=== PATIENT | male | born 1950 | race Caucasian/White ===

== ENCOUNTER 2018-04-02 09:10 | Day surgery (SDC) | payer OTHER, SELFPAY ==
--- NOTE | 2018-04-02 | PATH_ITS ---
[facility] Accession Number: [id number] . 01 Material submitted: . PART A: DUODENAL NODULE BIOPSY PART B: GE JUNCTION BIOPSY . 02 Diagnosis: A. Duodenum, Nodule, Biopsy: Duodenal mucosa with gastric heterotopia. Negative for intraepithelial lymphocytosis or villous blunting. Negative for dysplasia and malignancy. . B. Gastroesophageal Junction, Biopsy: Squamocolumnar junctional mucosa with reflux-related changes. Negative for intestinal metaplasia. Intraepithelial eosinophils are not increased. Negative for dysplasia and malignancy. V/04/05/2018 . 02 Electronically signed: . Deisy Rossi MD, Pathologist NPI- [id number] . 01 Gross description: . Received two formalin-filled containers, both labeled with the patient's name: . A. In a container labeled duodenal nodules, are four 0.1-0.3 cm portions of tissue, entirely submitted in cassette A. B. In a container labeled GE junction, are multiple less than 0.1 cm to 0.3 cm portions of tissue, entirely submitted in cassette B. ([id number]) /FRR . 02 Pathologist provided ICD-10: R10.9 . 02 CPT . 140571, 999212 Performed at: 01 [facility] [address], [place], [place] [id number] MD Александр Edmonds MD Phone: [phone] Performed at: 02 [facility] [address] [place], [place] [id number] MD William Kong MD Phone: [phone]
[2018-04-02] MEDS: SODIUM CHLORIDE 0.9% 1,000 ML 200 ML IV (09:15)
[2018-04-02 09:30] VITALS: BP 136/67; PULSE 65; RESP 12; TEMP 36.2; O2SAT 99; BMI 27.8
--- NOTE | 2018-04-02 10:45 | PM.HP.1 ---
History of Present Illness Date Patient Seen: 04/02/18 Time Patient Seen: 10:45 Chief complaint: [id number] EGD Narrative: Patient with chronic reflux disease and a dry cough here for evaluation at the request of his primary care doctor. Patient History Medical History Diabetes mellitus type 2 in obese (Chronic) Hypertension, essential, benign (Chronic) Soft tissue infection of lumbar spine (Resolved) Family & Social History Social History: household members spouse Meds Home Medications Medication Instructions Recorded Confirmed Type lisinopril 10 mg PO QAM #90 tab 12/25/16 Rx atorvastatin [Lipitor] 80 mg PO Q EVENING #90 tab 02/24/17 Rx glimepiride 1 mg PO AMCC #90 tab 02/24/17 Rx metformin [Glucophage] 1,000 mg PO BIDCC #180 tab 02/24/17 Rx Allergies Allergy/AdvReac Type Severity Reaction Status Date / Time Penicillins [PENICILLINS] Allergy Mild itching Verified 04/02/18 09:38 Review of Systems Review of Systems All systems reviewed & are unremarkable except as noted in HPI and below Exam Vital Signs (past 8 hours): - 04/02/18 09:30 Temperature 97.2 F L Pulse Rate 65 Respiratory Rate 12 Blood Pressure 136/67 H Pulse Oximetry 99 Oxygen Delivery Method Room Air Narrative Exam Narrative: No apparent distress. Lungs are clear is rhonchi heart regular rate and rhythm without murmur gallop abdomen is soft protuberant nontender without mass. Alert and oriented x3. Assessment & Plan Plan: Assessment/Plan Narrative: Patient with chronic reflux for an EGD. I have discussed procedure rationale. Risks of bleeding, perforation discussed. He appears to understand wishes to proceed
--- NOTE | 2018-04-02 10:50 | PM.PREOP ---
Pre-operative Note Interval Note Pre-op Check: Yes History & Physical exam performed today by Physician Changes: No ASA Class (for procedural sedation): II
[2018-04-02] MEDS: fentaNYL 250 MCG/5 ML INJ 150 MCG IV (11:09)
[2018-04-02] MEDS: MIDAZOLAM 5 MG/5 ML VIAL 4 MG IV (11:09)
[2018-04-02] MEDS: LIDOCAINE 4% SOLN 50 ML 20 ML TOP (11:10)
[2018-04-02] MEDS: TETRACAINE/BENZOCAINE/BUTAMBEN (CETACAINE) BOTTLE 1 SPRAY TOP (11:10)
--- NOTE | 2018-04-02 11:11 | P.OP.ENDO_ITS ---
Operative Date/Time/Diagnoses Date of procedure: 04/02/18 Time of procedure: 11:06 Pre-op diagnosis: Gastroesophageal reflux disease Post-op diagnosis: same (Possible Vincent's esophagus. Prominent glandular her formations in the duodenal bulb.) Procedure & Clinicians Study performed: EGD with cold biopsy Same procedure as scheduled: Yes Indications: Chronic reflux disease. Dry cough persistent. Surgeon: Sam Martinez Procedure Notes SCOAP/Timeout: Performed Procedure in detail: The patient had topical anesthetic applied to oropharynx. She was placed in left lateral decubitus position and underwent IV sedation directed by the surgeon consisting of fentanyl and Versed. A bite block was inserted and the scope was advanced through it into the esophagus. The esophagus was unremarkable. GE junction was noted at[38 cm from the incisors. No obvious hiatal hernia noted. There was mild inflammation at the GE junction.] . The stomach insufflated well. There were no lesions seen in the body, antrum or at the incisura. The pyloric channel was patent. The duodenum bulb was remarkable for heaped up glandular material. The duodenum was otherwise unremarkable to the 3rd part. The scope was brought back into the duodenal bulb and biopsies were taken. The scope was then brought into the stomach and retroflexed. The proximal stomach[normal in appearance. There was no evidence of a hiatal hernia from below.]. The scope was straightened and brought out through the esophagus again. Biopsies were taken at the GE junction. The scope was removed and the patient tolerated the procedure well. The vocal cords were noted to be normal in appearance. There was no evidence of inflammation above the vocal cords. Scope withdrawal time: Not applicable Sedation minutes: 11 Findings: Vincent's esophagus (Possible) and other findings (Prominent glands in the duodenal bulb which were biopsied. Suspect benign pathology.) Specimen(s): other (GE junction a duodenal bulb biopsies) Complications: none Recommendations: Other recommendation (Will send letter regarding pathology) Follow up: as needed (With Dr. Molina) Disposition: PACU
[2018-04-02 11:16] VITALS: BP 135/85; PULSE 71; RESP 15; TEMP 36.6
[2018-04-02 11:20] VITALS: BP 121/71; PULSE 69; RESP 20
[2018-04-02 11:25] VITALS: BP 128/82; PULSE 72; RESP 12; O2SAT 96
[2018-04-02 11:36] VITALS: BP 132/81; PULSE 73; RESP 16; TEMP 36.6; O2SAT 96
--- NOTE | 2018-04-02 12:00 | SUR.PHASEII ---
pt initially wanted to talk with dr jefferson, office called, in room message left, pt not wanting to wait, d/c instructions answered all questions. pt left when ready and left in stable condition with priority load for nurys.
== END 2018-04-02 12:00 | disposition home or self-care (01) ==
PROVIDERS: Visit Provider Specialist
PROC: 0DJ08ZZ Inspection of Upper Intestinal Tract, Via Natural or Artificial Opening Endoscopic (ICD-10-PCS; CPT 43235; principal; 2018-04-02 08:45)
DX: K21.9 Gastro-esophageal reflux disease without esophagitis (principal); R05 Cough; E11.9 Type 2 diabetes mellitus without complications; E66.9 Obesity, unspecified; I10 Essential (primary) hypertension; Z79.84 Long term (current) use of oral hypoglycemic drugs
CPT/HCPCS: 43239; 99152; J2250; J3010

== ENCOUNTER → 2018-12-28 09:53 | Outpatient (CLI) | payer OTHER, SELFPAY ==
--- NOTE | 2018-12-28 | DI.US.S_ITS ---
PROCEDURE: US SCROTUM INDICATIONS: DISORDER OF MALE GENITAL ORGANS TECHNIQUE: Real-time scanning was performed of the scrotum and testicles, with image documentation. Color and pulse Doppler interrogation was performed of both testicles. COMPARISON: None. FINDINGS: Right: Testicle is normal in size at 4.6 x 2.0 x 3.3 cm, and homogenous in echotexture. Epididymis is normal in overall size and morphology. There is a hydrocele. No varicoceles. Overlying scrotal skin is normal in thickness. Left: Testicle is normal in size at 4.0 x 2.6 x 3.7 cm, and homogeneous in echotexture. Spermatocele or cyst involving the epididymal head measuring 6.2 x 4.4 x 2.9 cm. There is a hydrocele. No varicoceles. Overlying scrotal skin is normal in thickness. Doppler: Color and pulse Doppler demonstrate normal and symmetric arterial flow in both testicles. IMPRESSION: Large left epididymal head cyst/spermatocele. Bilateral hydroceles. Dictated by: Dave Garcia M.D. on 12/28/2018 at 15:04 Approved by: Dave Garcia M.D. on 12/28/2018 at 15:07
== END ==
PROVIDERS: PCP Family Medicine; Visit Provider Family Medicine
DX: N50.9 Disorder of male genital organs, unspecified (principal); N50.3 Cyst of epididymis; N43.3 Hydrocele, unspecified
CPT/HCPCS: 76870

== ENCOUNTER → 2020-12-25 08:20 | Outpatient (CLI) | payer MEDICARE, OTHER, SELFPAY ==
[2020-12-25 19:28] LABS: Alanine Aminotransferase 32 IU/L (<50); Albumin 3.8 g/dL (3.5-5.0); Albumin Globulin Ratio 1.5 (1.0-2.8); Alkaline Phosphatase 70 U/L (38-126); Aspartate Aminotransferase 34 IU/L (17-59); BUN Creatinine Ratio 21.8 (6-22); Bilirubin Total 0.5 mg/dL (0.2-1.3); Blood Urea Nitrogen 24 mg/dL (9-20); Calcium 9.7 mg/dL (8.4-10.2); Carbon Dioxide 25 mmol/L (22-32); Chloride 104 mmol/L (98-107); Cholesterol 203 mg/dL (140-199); Estimated Glomerular Filt Rate > 60.0 mL/min (>60); Globulin 2.6 g/dL (1.7-4.1); Glucose 180 mg/dL (80-110); HDL Cholesterol 42 mg/dL (40-60); HEMOLYSIS < 15 (0-50); LDL Cholesterol Calculated 133 mg/dL (<100); Potassium 4.7 mmol/L (3.4-5.1); Sodium 136 mmol/L (137-145); Total Protein 6.4 g/dL (6.3-8.2); Triglycerides 141 mg/dL (35-150)
[2020-12-26 21:25] LABS: Add Manual Diff / Slide Review NO; Basophils Absolute Auto 100 /uL (0-100); Basophils Percent Auto 1.5 % (0-2); Eosinophils Absolute Auto 200 /uL (0-450); Eosinophils Percent Auto 2.8 % (2-4); Hematocrit 43.1 % (41-53); Hemoglobin 13.8 g/dL (13.5-17.5); Lymphocytes Absolute Auto 2400 /uL (1100-4500); Lymphocytes Percent Auto 40.8 % (25-40); Mean Corpuscular HGB Conc 32.2 % (30-36); Mean Corpuscular Hemoglobin 30.7 PG (26-34); Mean Corpuscular Volume 95.5 fL (80-100); Monocytes Absolute Auto 600 /uL (0-900); Monocytes Percent Auto 9.7 % (3-14); Neutrophils Absolute Auto 2700 /uL (1500-7000); Neutrophils Percent Auto 45.2 % (50-75); Platelet Count 173 X10^3/uL (150-400); Red Blood Cell Count 4.51 X10^6/uL (4.5-5.9); Red Cell Distribution Width 14.4 % (11.6-14.8); White Blood Cell Count 5.9 X10^3/uL (4.5-11.0)
== END ==
PROVIDERS: PCP Family Medicine; Visit Provider Family Medicine
DX: E11.9 Type 2 diabetes mellitus without complications (principal); E78.5 Hyperlipidemia, unspecified; I10 Essential (primary) hypertension
CPT/HCPCS: 80053; 80061; 83036; 85025

== ENCOUNTER → 2021-01-09 12:25 | Outpatient (CLI) | payer MEDICARE, OTHER, SELFPAY ==
[2021-01-09 20:43] LABS: COVID19 - ORCAS (NP or Nasal) Negative (Negative)
== END ==
PROVIDERS: PCP Family Medicine; Visit Provider Family Medicine
DX: Z01.812 Encounter for preprocedural laboratory examination (principal); Z20.822 Contact with and (suspected) exposure to COVID-19
CPT/HCPCS: C9803; U0003

== ENCOUNTER 2021-01-11 09:15 | Day surgery (SDC) | payer MEDICARE, OTHER, SELFPAY ==
--- NOTE | 2021-01-11 | PATH_ITS ---
[facility] Accession Number: [id number] . 01 Material submitted: . PART A: hepatic flexure - HEPATIC FLEXURE POLYPS PART B: rectum - RECTAL POLYP PART C: colon - LESION AT ANAL VERGE . 02 Diagnosis: A. Hepatic Flexure Polyps: Multiple (approximately six) portions of serrated lesion; favor sessile serrated adenoma. . B. Rectal Polyp: Well-differentiated neuroendocrine tumor, grade 1. . C. Lesion at Anal Verge: Squamous papilloma; negative for dysplasia or malignancy. [facility] 01/17/2021 1647 Local . 02 Comment: As part of routine quality control supervisor, Dr. Toney also reviewed this case and agrees with the diagnosis. . Results discussed with Dr. Martinez's nurse, Dionna, on 01/17/2021 at approximately 3:29 p.m. . 02 Electronically signed: . No Sandhu MD, Pathologist NPI- [id number] . 01 Gross description: . Part A: HEPATIC FLEXURE POLYPS: Received in formalin are multiple fragment(s) of antonio, soft tissue measuring 2.2 x 0.6 x 0.2 cm in aggregate submitted entirely in 1 cassette(s) Part B: RECTAL POLYP: Received in formalin are multiple fragment(s) of antonio, soft tissue measuring 0.6 x 0.5 x 0.4 cm in aggregate submitted entirely in 1 cassette(s) Part C: LESION AT ANAL VERGE: Received in formalin are 2 fragment(s) of antonio, soft tissue measuring 0.2 x 0.2 x 0.2 cm to 0.2 x 0.2 x 0.1 cm submitted entirely in 1 cassette(s) /[facility] 01/13/2021 1507 Local . 02 Microscopic: . Immunohistochemical stains were performed to further evaluate the cells of interest. The control stains showed appropriate reactivity. . RESULTS: Block B1: Synaptophysin: Strongly positive. Chromogranin: Variable staining. Ki-67: Less than 2% of tumor nuclei positive. . The lesion is immunopositive for synaptophysin with variable chromogranin immunostaining. The Ki-67 immunostain is positive in less than 2% of the tumor nuclei. These findings support a diagnosis of neuroendocdrine tumor as well as a low-grade (well-differentiated) classification. . . * This test was developed and its performance characteristics determined by [facility]. It has not been cleared or approved by the U.S. Food and Drug Administration. The FDA has determined that such clearance or approval is not necessary. This test is used for clinical purposes. It should not be regarded as investigational or for research. . 02 Pathologist provided ICD-10: Z12.11, Z86.010, R13.10, D3A.026 . 02 CPT . 858730, 043769, 303040, U32571, K08553 Performed at: 01 [facility] [address] [id number] MD Александр Edmonds MD Phone: [phone] Performed at: 02 [facility] [address] [place] [id number] MD Deisy Rossi MD Phone: [phone]
[2021-01-11 10:22] VITALS: BMI 28.1
[2021-01-11 10:30] VITALS: BP 133/71; PULSE 78; RESP 12; TEMP 36.6; O2SAT 98
[2021-01-11] MEDS: LACTATED RINGERS 1,000 ML 200 ML IV (10:42)
--- NOTE | 2021-01-11 10:51 | PM.PREOP ---
Pre-operative Note COVID-19 COVID-19 status: Negative Result date/Date tested (Pos, Neg/Pending): 01/10/21 Interval Note History & Physical reviewed/Exam performed by Physician: Yes Changes to H&P: No ASA Class (for procedural sedation): II
[2021-01-11] MEDS: LIDOCAINE 4% SOLN 50 ML 20 ML TOP (11:48)
[2021-01-11] MEDS: fentaNYL 250 MCG/5 ML INJ IV (12:11)
[2021-01-11] MEDS: MIDAZOLAM 5 MG/5 ML VIAL IV (12:11)
--- NOTE | 2021-01-11 12:33 | P.OP.ENDO_ITS ---
Operative Date/Time/Diagnoses Date of procedure: 01/11/21 Time of procedure: 12:33 Pre-op diagnosis: Dysphagia. Screening for colon cancer. Personal history of polyps. Post-op diagnosis: same (Hiatal hernia. Schatzki ring. Multiple polypoid lesions of the colon. Lesion at anal verge.) Procedure & Clinicians Study performed: EGD. Colonoscopy with hot snare polypectomy, cold snare polypectomy and cold biopsy. Same procedure as scheduled: Yes Indications: Screening for colon cancer. Determine cause of dysphagia. Surgeon: Sam Martinez Procedure Notes SCOAP/Timeout: Performed Procedure in detail: Patient was placed in left lateral decubitus position after gargling with topical anesthetic. He was sedated using fentanyl and Versed in a stepwise fashion. A bite block was inserted and the scope was advanced through into the esophagus. The esophagus was normal until I reach the GE junction. There was defined Schatzki ring but not really any narrowing. It was opened wide enough that the largest balloon I had is unlikely to have dilated it. Just below was a hiatal hernia measuring about 3 cm in length. The stomach insufflated well. No lesions were seen in the stomach. The incisura was clear. Pyloric channel was patent. The duodenum was unremarkable with 4th part. The scope was brought back into the stomach and retroflexed. The hiatal hernia seen from above was also seen from below. The scope was gradually brought out. GE junction was noted to be at about 36 cm from the incisors. No other lesions were seen in the esophagus. The patient was repositioned. The patient was placed in the left lateral decubitus position and underwent IV sedation directed by the surgeon consisting of fentanyl and Versed. Digital exam was remarkable for a palpable lesion in the rectum. It felt hard like it was scar.. The scope was inserted and advanced through the rectum into the sigmoid, descending, transverse, and ascending colon. Patient was noted to have sigmoid diverticulosis. There was a small lesion noted at the hepatic flexure which I decided to remove on the way out.. The cecum was reached identified by the ileocecal valve and the appendiceal opening. The ileocecal valve was succ essfully cannulated. The terminal ileum was normal in appearance. The scope was gradually brought out. Polyps were found at hepatic flexure(which was hot snared), there was a near by polyp which was cold snared. One other lesion at the anal verge was hot snared. This was what I could feel on exam.. The scope ultimately was retroflexed in the rectum. The appearance was remarkable for was probably some prominent scarring on hemorrhoids. I placed a snare on this lesion and attempted to remove it but the patient felt what I was doing and therefore I decided to simply biopsy it to confirm my suspicion. If the biopsy proves to be adenomatous then this will half to be re-examined and completely removed. That may require anesthesia to do that. If it is simply scarring or not neoplastic then its can be observed.. The scope was removed and the patient tolerated the procedure well. The prep was very good. Scope withdrawal time: 7 minutes(19 total) Sedation minutes: 44 Findings: polyp (Multiple) and other findings (Schatzki ring) Specimen(s): other (Colon polyps and anal lesion.) Complications: none Post-procedure Recommendations: Colonscopy in 5 years and Continue medication(s) (Acid suppression medication) Plan for aftercare: If the patient has considerable symptoms from reflux consideration for anti-reflux repair and repair of his diaphragm could be entertained. Simple repair of a diaphragmatic hernias are unfortunately fraught with early failure and it may be best for him to make an effort to chew his food really well before swallowing. Follow up: as needed Disposition: PACU
[2021-01-11 12:38] VITALS: BP 143/82; PULSE 74; RESP 15; TEMP 36.7; O2SAT 99
[2021-01-11 12:42] VITALS: BP 142/74; PULSE 72; RESP 15; O2SAT 100
[2021-01-11 12:47] VITALS: BP 138/74; PULSE 78; RESP 17; O2SAT 99
[2021-01-11 12:54] VITALS: BP 130/78; PULSE 72; RESP 18; TEMP 36.8; O2SAT 99
== END 2021-01-11 13:03 | disposition home or self-care (01) ==
PROVIDERS: PCP Family Medicine; Referring Provider Specialist; Visit Provider Specialist
PROC: 0DJ08ZZ Inspection of Upper Intestinal Tract, Via Natural or Artificial Opening Endoscopic (ICD-10-PCS; CPT 43235; principal; 2021-01-11 10:45)
PROC: 0DJD8ZZ Inspection of Lower Intestinal Tract, Via Natural or Artificial Opening Endoscopic (ICD-10-PCS; CPT 45378; 2021-01-11 10:45)
DX: Z12.11 Encounter for screening for malignant neoplasm of colon (principal); Z86.010 Personal history of colon polyps; R13.10 Dysphagia, unspecified; K22.2 Esophageal obstruction; K44.9 Diaphragmatic hernia without obstruction or gangrene; E66.9 Obesity, unspecified; I10 Essential (primary) hypertension; E11.9 Type 2 diabetes mellitus without complications; Z79.84 Long term (current) use of oral hypoglycemic drugs; Z68.28 Body mass index [BMI] 28.0-28.9, adult; D3A.026 Benign carcinoid tumor of the rectum
CPT/HCPCS: 45385; 45380; 43235; 99152; 99153; J2250; J3010

== ENCOUNTER → 2021-02-25 11:24 | Outpatient (CLI) | payer MEDICARE, OTHER, SELFPAY ==
[2021-02-25 21:28] LABS: COVID19 - ORCAS (NP or Nasal) Negative (Negative)
== END ==
PROVIDERS: PCP Family Medicine; Visit Provider Physician Assistant
DX: Z20.822 Contact with and (suspected) exposure to COVID-19 (principal)
CPT/HCPCS: C9803; U0003

== ENCOUNTER 2021-02-28 09:36 | Day surgery (SDC) | payer MEDICARE, OTHER, SELFPAY ==
--- NOTE | 2021-02-28 | PATH_ITS ---
[facility] Accession Number: [id number] . 01 Material submitted: . body - POSSIBLE POLYP SITE . 02 Diagnosis: Possible Polyp Site, Biopsy: Colonic mucosa with no diagnostic abnormality. Negative for active, chronic, and microscopic colitis. Negative for dysplasia and malignancy. . [facility] 03/12/2021 1307 Local . 02 Electronically signed: . Deisy Rossi MD, Pathologist NPI- [id number] . 01 Gross description: . POSSIBLE POLYP SITE: Received in formalin are 3 fragment(s) of antonio, soft tissue measuring 0.6 x 0.3 x 0.1 cm to 0.4 x 0.2 x 0.2 cm submitted entirely in 1 cassette(s) /[facility] 03/01/2021 0436 Local . 02 Pathologist provided ICD-10: D3A.8 . 02 CPT . 381572 Performed at: 01 [facility] [address] [facility], [place], [place] [id number] MD Александр Edmonds MD Phone: [phone] Performed at: 02 [facility] [address] [place], [place] [id number] MD Deisy Rossi MD Phone: [phone]
[2021-02-28 10:10] VITALS: BP 155/84; PULSE 67; RESP 16; TEMP 36.3; O2SAT 99; BMI 28.1
[2021-02-28] MEDS: LACTATED RINGERS 1,000 ML 42 ML IV (10:28)
--- NOTE | 2021-02-28 12:01 | PM.HP.1 ---
History of Present Illness History of Present Illness Chief complaint: FLEX SIG Narrative: Patient is a gentleman who had a neuroendocrine tumor removed in his rectum. This was a tiny lesion and appeared to be completely removed. He is brought back to make sure there no regrowth or residual tumor. Patient History Medical History Alcoholism in recovery Diabetes mellitus type 2 in obese H/O renal calculi Hiatal hernia Hypertension, essential, benign Peripheral neuropathy (~2006) Soft tissue infection of lumbar spine Surgical History Anesthesia Hx of spinal surgery Family & Social History Family History Mother Cancer Sister Cancer Grandmother Cancer Social History: household members spouse Tobacco & Substance use: Smoking Status Never smoker alcohol intake never Substance Use Type does not use Meds Home Medications and Allergies Home Medications Medication Instructions Recorded Confirmed Type famotidine-Ca carb-mag hydrox 10 1 tab PO DAILY PRN 12/13/20 02/28/21 History mg-800 mg-165 mg chewable tablet (Pepcid Complete) metformin 500 mg tablet 500 mg PO BID #60 tab 12/13/20 02/28/21 Rx atorvastatin 80 mg tablet (Lipitor) 80 mg PO Q EVENING #90 tab 01/01/21 02/28/21 Rx glimepiride 1 mg tablet 1 mg PO AMCC #90 tab 01/01/21 02/28/21 Rx lisinopril 10 mg tablet 10 mg PO QAM #90 tab 01/01/21 02/28/21 Rx Allergies Allergy/AdvReac Type Severity Reaction Status Date / Time Penicillins [PENICILLINS] Allergy Mild itching Verified 12/25/20 08:08 Review of Systems Review of Systems Narrative: No cardiopulmonary symptoms. No black or bloody bowel movements. Exam Vital Signs (past 8 hours): - 02/28/21 10:10 Temperature 97.3 F L Pulse Rate 67 Respiratory Rate 16 Blood Pressure 155/84 H Pulse Oximetry 99 Oxygen Delivery Method Room Air Oxygen Flow Rate 0 Narrative Exam Narrative: Pleasant cooperative patient no apparent distress. Lungs are clear to auscultation. No rales or rhonchi. Heart regular rate and rhythm no murmur gallop. Abdomen is soft nontender without mass. No obvious hernias. Patient is alert and oriented x3. Assessment & Plan Assessment and plan (1) Benign neuroendocrine tumor of rectum: Status: Acute Assessment & Plan narrative: Patient for re-examination to make sure there is no residual or regrowth of a neuroendocrine tumor of the rectum. The coding suggest this is a benign lesion but in fact it is of uncertain behavior.
--- NOTE | 2021-02-28 12:04 | PM.PREOP ---
Pre-operative Note COVID-19 COVID-19 status: Negative Result date/Date tested (Pos, Neg/Pending): 02/27/21 Interval Note History & Physical reviewed/Exam performed by Physician: Yes Changes to H&P: No ASA Class (for procedural sedation): III
--- NOTE | 2021-02-28 12:19 | PM.OP.ENDO ---
Operative Date/Time/Diagnoses Date of procedure: 02/28/21 Time of procedure: 12:19 Pre-op diagnosis: History of rectal neuroendocrine tumor. Post-op diagnosis: same Procedure & Clinicians Study performed: Flexible sigmoidoscopy Same procedure as scheduled: Yes Indications: Determine if there is any residual lesion or regrowth. Surgeon: Sam Martinez Procedure Notes SCOAP/Timeout: Performed Procedure in detail: Patient was placed in left lateral decubitus position. Digital exam was unremarkable. The scope was inserted and advanced to level 30 cm. No lesions were seen. The scope was gradually brought out. There was 1 area that might have been the prior biopsy site. I chose to biopsy it just to make sure there was no residual in that region. There was no other abnormality that I could see and there was nothing seen that was concerning. I had biopsied a lesion at his anal verge would prove to proved to be a fibroepithelial polyp and this was again seen. Scope was removed the patient tolerated the procedure well. Scope withdrawal time: Not applicable Sedation minutes: 0 Specimen(s): other (Biopsies of the rectum) Complications: none Impression: No obvious residual disease. Post-procedure Recommendations: Colonscopy in 1 year Follow up: as needed Disposition: PACU
[2021-02-28 12:25] VITALS: BP 158/93; PULSE 73; RESP 16; TEMP 36.4; O2SAT 98
== END 2021-02-28 12:35 | disposition home or self-care (01) ==
PROVIDERS: PCP Family Medicine; Referring Provider Specialist; Visit Provider Specialist
PROC: 0DJD8ZZ Inspection of Lower Intestinal Tract, Via Natural or Artificial Opening Endoscopic (ICD-10-PCS; CPT 45378; principal; 2021-02-28 10:45)
DX: Z12.11 Encounter for screening for malignant neoplasm of colon (principal); Z87.19 Personal history of other diseases of the digestive system; E11.9 Type 2 diabetes mellitus without complications; I10 Essential (primary) hypertension; E66.9 Obesity, unspecified; Z79.84 Long term (current) use of oral hypoglycemic drugs
CPT/HCPCS: 45331

== ENCOUNTER → 2021-05-03 08:22 | Outpatient (CLI) | payer MEDICARE, OTHER, SELFPAY ==
[2021-05-03 20:05] LABS: Add Manual Diff / Slide Review NO; Basophils Absolute Auto 0 /uL (0-100); Basophils Percent Auto 0.5 % (0-2); Eosinophils Absolute Auto 200 /uL (0-450); Eosinophils Percent Auto 2.7 % (2-4); Hematocrit 42.9 % (41-53); Lymphocytes Absolute Auto 2500 /uL (1100-4500); Lymphocytes Percent Auto 40.1 % (25-40); Mean Corpuscular HGB Conc 32.5 % (30-36); Mean Corpuscular Hemoglobin 30.6 PG (26-34); Monocytes Absolute Auto 600 /uL (0-900); Monocytes Percent Auto 10.1 % (3-14); Neutrophils Absolute Auto 2900 /uL (1500-7000); Neutrophils Percent Auto 46.6 % (50-75); Platelet Count 170 X10^3/uL (150-400); Red Blood Cell Count 4.57 X10^6/uL (4.5-5.9); Red Cell Distribution Width 14.2 % (11.6-14.8); White Blood Cell Count 6.3 X10^3/uL (4.5-11.0)
[2021-05-03 20:11] LABS: BUN Creatinine Ratio 17.5 (6-22); Blood Urea Nitrogen 20 mg/dL (9-20); Calcium 9.8 mg/dL (8.4-10.2); Carbon Dioxide 29 mmol/L (22-32); Chloride 105 mmol/L (98-107); Estimated Glomerular Filt Rate > 60.0 mL/min (>60); Glucose 136 mg/dL (80-110); HEMOLYSIS < 15 (0-50); Hemoglobin A1C% w Est Avg Glu 6.9 % (4.0-6.0); Potassium 4.8 mmol/L (3.4-5.1); Sodium 139 mmol/L (137-145)
[2021-05-03 20:12] LABS: Cholesterol 139 mg/dL (140-199); HDL Cholesterol 44 mg/dL (40-60); LDL Cholesterol Calculated 81 mg/dL (<100); Triglycerides 71 mg/dL (35-150)
[2021-05-03 21:15] LABS: Hep C Virus Ab w/Reflex Quant NEGATIVE s/c (NEGATIVE)
== END ==
PROVIDERS: Family Medicine; PCP Family Medicine; Visit Provider Family Medicine
DX: E11.9 Type 2 diabetes mellitus without complications (principal); E78.5 Hyperlipidemia, unspecified; I10 Essential (primary) hypertension; E87.1 Hypo-osmolality and hyponatremia; Z00.00 Encounter for general adult medical examination without abnormal findings
CPT/HCPCS: 80048; 80061; 83036; 85025; 86803

== ENCOUNTER → 2021-12-02 14:23 | Outpatient (CLI) | payer MEDICARE, OTHER, SELFPAY ==
[2021-12-02 18:32] LABS: Alanine Aminotransferase 32 IU/L (<50); Albumin Globulin Ratio 1.7 (1.0-2.8); Alkaline Phosphatase 63 U/L (38-126); Aspartate Aminotransferase 35 IU/L (17-59); BUN Creatinine Ratio 19.6 (6-22); Bilirubin Total 0.7 mg/dL (0.2-1.3); Blood Urea Nitrogen 21 mg/dL (9-20); Calcium 9.2 mg/dL (8.4-10.2); Carbon Dioxide 27 mmol/L (22-32); Chloride 105 mmol/L (98-107); Cholesterol 145 mg/dL (140-199); Estimated Glomerular Filt Rate > 60 mL/min (>60); Globulin 2.4 g/dL (1.7-4.1); Glucose 132 mg/dL (80-110); HDL Cholesterol 42 mg/dL (40-60); HEMOLYSIS < 15 (0-50); LDL Cholesterol Calculated 75 mg/dL (<100); Sodium 140 mmol/L (137-145); Total Protein 6.4 g/dL (6.3-8.2); Triglycerides 141 mg/dL (35-150)
[2021-12-02 18:35] LABS: Hemoglobin A1C% w Est Avg Glu 8.9 % (4.0-6.0)
[2021-12-02 19:28] LABS: Creatinine Urine Random 99.1 mg/dL
[2021-12-02 19:32] LABS: Microalbumi Creatinin Ratio Ur 66.5 ug/mg CR (<30); Microalbumin Urine Random 6.6 mg/dL (0-1.6)
== END ==
PROVIDERS: PCP Family Medicine; Visit Provider Family Medicine
DX: E11.9 Type 2 diabetes mellitus without complications (principal); I10 Essential (primary) hypertension; E78.5 Hyperlipidemia, unspecified
CPT/HCPCS: 80053; 80061; 82043; 82570; 83036

== ENCOUNTER → 2022-04-09 13:00 | Outpatient (CLI) | payer MEDICARE, OTHER, SELFPAY ==
[2022-04-09 19:55] LABS: Hemoglobin A1C% w Est Avg Glu 7.9 % (4.0-6.0)
[2022-04-09 20:34] LABS: Creatinine Urine Random 125.9 mg/dL
[2022-04-09 20:38] LABS: Microalbumi Creatinin Ratio Ur 68.3 ug/mg CR (<30); Microalbumin Urine Random 8.6 mg/dL (0-1.6)
[2022-04-10 20:05] LABS: BUN Creatinine Ratio 21.3 (6-22); Blood Urea Nitrogen 23 mg/dL (9-20); Calcium 9.2 mg/dL (8.4-10.2); Carbon Dioxide 23 mmol/L (22-32); Chloride 108 mmol/L (98-107); Cholesterol 140 mg/dL (140-199); Estimated Glomerular Filt Rate > 60 mL/min (>60); Glucose 117 mg/dL (80-110); HDL Cholesterol 44 mg/dL (40-60); HEMOLYSIS < 15 (0-50); LDL Cholesterol Calculated 69 mg/dL (<100); Potassium 4.5 mmol/L (3.4-5.1); Sodium 139 mmol/L (137-145); Triglycerides 134 mg/dL (35-150)
== END ==
PROVIDERS: PCP Family Medicine; Visit Provider Family Medicine
DX: E11.9 Type 2 diabetes mellitus without complications (principal); E87.1 Hypo-osmolality and hyponatremia
CPT/HCPCS: 80048; 80061; 82043; 82570; 83036

== ENCOUNTER → 2022-12-10 10:23 | Outpatient (CLI) | payer MEDICARE, OTHER, SELFPAY ==
[2022-12-10 19:28] LABS: Add Manual Diff / Slide Review NO; Basophils Absolute Auto 100 /uL (0-100); Basophils Percent Auto 0.9 % (0-2); Eosinophils Absolute Auto 100 /uL (0-450); Eosinophils Percent Auto 1.5 % (2-4); Hematocrit 37.7 % (41-53); Hemoglobin 12.8 g/dL (13.5-17.5); Lymphocytes Absolute Auto 2400 /uL (1100-4500); Lymphocytes Percent Auto 41.6 % (25-40); Mean Corpuscular HGB Conc 33.9 % (30-36); Mean Corpuscular Hemoglobin 31.8 PG (26-34); Mean Corpuscular Volume 93.9 fL (80-100); Monocytes Absolute Auto 700 /uL (0-900); Monocytes Percent Auto 11.5 % (3-14); Neutrophils Absolute Auto 2600 /uL (1500-7000); Neutrophils Percent Auto 44.5 % (50-75); Platelet Count 180 X10^3/uL (150-400); Red Blood Cell Count 4.01 X10^6/uL (4.5-5.9); Red Cell Distribution Width 13.8 % (11.6-14.8); White Blood Cell Count 5.8 X10^3/uL (4.5-11.0)
[2022-12-10 19:49] LABS: BUN Creatinine Ratio 20.6 (6-22); Blood Urea Nitrogen 21 mg/dL (9-20); Calcium 9.3 mg/dL (8.4-10.2); Carbon Dioxide 26 mmol/L (22-32); Chloride 105 mmol/L (98-107); Cholesterol 116 mg/dL (140-199); Estimated Glomerular Filt Rate > 60 mL/min (>60); Glucose 112 mg/dL (80-110); HDL Cholesterol 41 mg/dL (40-60); HEMOLYSIS < 15 (0-50); LDL Cholesterol Calculated 61 mg/dL (<100); Potassium 4.6 mmol/L (3.4-5.1); Sodium 137 mmol/L (137-145); Triglycerides 68 mg/dL (35-150)
[2022-12-10 20:24] LABS: Creatinine Urine Random 109.7 mg/dL
[2022-12-10 20:29] LABS: Microalbumi Creatinin Ratio Ur 67.4 ug/mg CR (<30); Microalbumin Urine Random 7.4 mg/dL (0-1.6)
[2022-12-12 06:08] LABS: x Labcorp Estim. Avg Glu (eAG) 151 mg/dL (.); x Labcorp Hemoglobin A1c 6.9 % (4.8-5.6)
== END ==
PROVIDERS: PCP Family Medicine; Visit Provider Family Medicine
DX: K21.9 Gastro-esophageal reflux disease without esophagitis (principal); E11.29 Type 2 diabetes mellitus with other diabetic kidney complication; E78.2 Mixed hyperlipidemia; E87.1 Hypo-osmolality and hyponatremia; I10 Essential (primary) hypertension; R80.9 Proteinuria, unspecified
CPT/HCPCS: 80048; 80061; 82043; 82570; 83036; 85025

== ENCOUNTER → 2023-01-07 14:24 | Outpatient (CLI) | payer MEDICARE, OTHER, SELFPAY ==
[2023-01-07 20:20] LABS: Add Manual Diff / Slide Review NO; Basophils Absolute Auto 100 /uL (0-100); Basophils Percent Auto 0.8 % (0-2); Eosinophils Absolute Auto 200 /uL (0-450); Eosinophils Percent Auto 2.4 % (2-4); Hematocrit 36.7 % (41-53); Hemoglobin 12.8 g/dL (13.5-17.5); Lymphocytes Absolute Auto 2400 /uL (1100-4500); Lymphocytes Percent Auto 33.6 % (25-40); Mean Corpuscular HGB Conc 34.9 % (30-36); Mean Corpuscular Hemoglobin 32.4 PG (26-34); Mean Corpuscular Volume 92.7 fL (80-100); Monocytes Absolute Auto 700 /uL (0-900); Monocytes Percent Auto 9.1 % (3-14); Neutrophils Absolute Auto 3900 /uL (1500-7000); Neutrophils Percent Auto 54.1 % (50-75); Platelet Count 189 X10^3/uL (150-400); Red Blood Cell Count 3.96 X10^6/uL (4.5-5.9); Red Cell Distribution Width 13.8 % (11.6-14.8); White Blood Cell Count 7.3 X10^3/uL (4.5-11.0)
[2023-01-07 20:27] LABS: HEMOLYSIS < 15 (0-50); Iron 149 ug/dL (49-181)
[2023-01-07 20:38] LABS: Percent Iron Saturation 41 % (20-50); Total Iron Binding Capacity 367 ug/dL (261-462); Transferrin 274 mg/dL (206-381)
[2023-01-07 21:15] LABS: Vitamin B12 564 pg/mL (239-931)
== END ==
PROVIDERS: PCP Family Medicine; Visit Provider Family Medicine
DX: G06.1 Intraspinal abscess and granuloma (principal); D64.9 Anemia, unspecified
CPT/HCPCS: 82607; 83540; 83550; 85025

== ENCOUNTER → 2023-01-14 09:28 | Outpatient (CLI) | payer MEDICARE, OTHER, SELFPAY ==
[2023-01-19 17:07] LABS: Fecal Immunochemical Test Negative (Negative)
== END ==
PROVIDERS: PCP Family Medicine; Visit Provider Family Medicine
DX: D64.9 Anemia, unspecified (principal)
CPT/HCPCS: 82274

== ENCOUNTER → 2023-01-28 10:52 | Outpatient (CLI) | payer MEDICARE, OTHER, SELFPAY ==
[2023-01-28 19:53] LABS: Reticulocyte Count, Percent 0.6 % (0.9-2.6)
[2023-01-28 19:57] LABS: Lactate Dehydrogenase 186 U/L (120-246)
[2023-01-28 21:47] LABS: Folate > 20.0 ng/mL (2.76-20.0)
[2023-01-30 04:31] LABS: Haptoglobin 122 mg/dL (34-355)
== END ==
PROVIDERS: PCP Family Medicine; Visit Provider Family Medicine
DX: E11.9 Type 2 diabetes mellitus without complications (principal); D64.9 Anemia, unspecified
CPT/HCPCS: 82746; 83010; 83615; 84443; 85045

== ENCOUNTER → 2023-03-10 11:17 | Outpatient (CLI) | payer MEDICARE, OTHER, SELFPAY ==
[2023-03-10 20:27] LABS: Add Manual Diff / Slide Review NO; Basophils Absolute Auto 100 /uL (0-100); Eosinophils Absolute Auto 100 /uL (0-450); Eosinophils Percent Auto 1.5 % (2-4); Hematocrit 38.2 % (41-53); Hemoglobin 12.8 g/dL (13.5-17.5); Lymphocytes Absolute Auto 1900 /uL (1100-4500); Lymphocytes Percent Auto 34.7 % (25-40); Mean Corpuscular HGB Conc 33.5 % (30-36); Mean Corpuscular Hemoglobin 31.1 PG (26-34); Mean Corpuscular Volume 92.7 fL (80-100); Monocytes Absolute Auto 600 /uL (0-900); Monocytes Percent Auto 11.1 % (3-14); Neutrophils Absolute Auto 2900 /uL (1500-7000); Neutrophils Percent Auto 51.7 % (50-75); Platelet Count 172 X10^3/uL (150-400); Red Blood Cell Count 4.12 X10^6/uL (4.5-5.9); Red Cell Distribution Width 13.8 % (11.6-14.8); White Blood Cell Count 5.6 X10^3/uL (4.5-11.0)
[2023-03-10 20:30] LABS: Reticulocyte Count, Percent 0.5 % (0.9-2.6)
== END ==
PROVIDERS: PCP Family Medicine; Visit Provider Family Medicine
DX: G06.1 Intraspinal abscess and granuloma (principal); D64.9 Anemia, unspecified
CPT/HCPCS: 85025; 85045

== ENCOUNTER → 2023-05-25 09:47 | Outpatient (CLI) | payer MEDICARE, OTHER, SELFPAY ==
[2023-05-25 20:04] LABS: Add Manual Diff / Slide Review NO; Basophils Absolute Auto 0 /uL (0-100); Basophils Percent Auto 0.8 % (0-2); Eosinophils Absolute Auto 200 /uL (0-450); Eosinophils Percent Auto 2.8 % (2-4); Hematocrit 37.1 % (41-53); Hemoglobin 12.6 g/dL (13.5-17.5); Lymphocytes Absolute Auto 2800 /uL (1100-4500); Lymphocytes Percent Auto 47.7 % (25-40); Mean Corpuscular HGB Conc 33.8 % (30-36); Mean Corpuscular Hemoglobin 30.6 PG (26-34); Mean Corpuscular Volume 90.5 fL (80-100); Monocytes Absolute Auto 700 /uL (0-900); Monocytes Percent Auto 11.4 % (3-14); Neutrophils Absolute Auto 2200 /uL (1500-7000); Neutrophils Percent Auto 37.3 % (50-75); Platelet Count 239 X10^3/uL (150-400); Red Blood Cell Count 4.11 X10^6/uL (4.5-5.9); White Blood Cell Count 5.8 X10^3/uL (4.5-11.0)
[2023-05-25 20:12] LABS: BUN Creatinine Ratio 23.8 (6-22); Blood Urea Nitrogen 24 mg/dL (9-20); Calcium 9.5 mg/dL (8.4-10.2); Carbon Dioxide 24 mmol/L (22-32); Chloride 107 mmol/L (98-107); Cholesterol 158 mg/dL (140-199); Estimated Glomerular Filt Rate > 60 mL/min (>60); Glucose 108 mg/dL (80-110); HDL Cholesterol 45 mg/dL (40-60); HEMOLYSIS < 15 (0-50); LDL Cholesterol Calculated 99 mg/dL (<100); Potassium 4.6 mmol/L (3.4-5.1); Sodium 140 mmol/L (137-145); Triglycerides 72 mg/dL (35-150)
[2023-05-25 20:18] LABS: Hemoglobin A1C% w Est Avg Glu 7.6 % (4.0-6.0)
[2023-05-25 20:33] LABS: Creatinine Urine Random 96.3 mg/dL
[2023-05-25 20:38] LABS: Microalbumi Creatinin Ratio Ur 62.3 ug/mg CR (<30)
== END ==
PROVIDERS: PCP Family Medicine; Visit Provider Family Medicine
DX: G06.1 Intraspinal abscess and granuloma (principal); E11.9 Type 2 diabetes mellitus without complications; D64.9 Anemia, unspecified; D68.51 Activated protein C resistance; E78.2 Mixed hyperlipidemia; E87.1 Hypo-osmolality and hyponatremia; I10 Essential (primary) hypertension; E11.29 Type 2 diabetes mellitus with other diabetic kidney complication; R80.9 Proteinuria, unspecified
CPT/HCPCS: 80048; 80061; 82043; 82570; 83036; 85025

== ENCOUNTER → 2023-10-26 09:30 | Outpatient (CLI) | payer MEDICARE, OTHER, SELFPAY ==
[2023-10-26 19:17] LABS: Add Manual Diff / Slide Review NO; Basophils Absolute Auto 100 /uL (0-100); Basophils Percent Auto 0.9 % (0-2); Eosinophils Absolute Auto 200 /uL (0-450); Hematocrit 38.4 % (41-53); Lymphocytes Absolute Auto 2500 /uL (1100-4500); Lymphocytes Percent Auto 39.7 % (25-40); Mean Corpuscular HGB Conc 33.8 % (30-36); Mean Corpuscular Hemoglobin 30.8 PG (26-34); Mean Corpuscular Volume 91.3 fL (80-100); Monocytes Absolute Auto 700 /uL (0-900); Monocytes Percent Auto 10.6 % (3-14); Neutrophils Absolute Auto 2900 /uL (1500-7000); Neutrophils Percent Auto 45.8 % (50-75); Platelet Count 173 X10^3/uL (150-400); Red Blood Cell Count 4.21 X10^6/uL (4.5-5.9); White Blood Cell Count 6.4 X10^3/uL (4.5-11.0)
[2023-10-26 19:20] LABS: Hemoglobin A1C% w Est Avg Glu 7.6 % (4.0-6.0)
[2023-10-26 19:29] LABS: Cholesterol 111 mg/dL (140-199); HDL Cholesterol 43 mg/dL (40-60); LDL Cholesterol Calculated 50 mg/dL (<100); Triglycerides 91 mg/dL (35-150)
== END ==
PROVIDERS: PCP Family Medicine; Visit Provider Family Medicine
DX: E11.9 Type 2 diabetes mellitus without complications (principal); E78.2 Mixed hyperlipidemia; D64.9 Anemia, unspecified
CPT/HCPCS: 80061; 83036; 85025

== ENCOUNTER → 2024-05-17 08:59 | Outpatient (CLI) | payer MEDICARE, OTHER, SELFPAY ==
[2024-05-17 19:40] LABS: Add Manual Diff / Slide Review NO; Basophils Absolute Auto 0 /uL (0-100); Basophils Percent Auto 0.5 % (0-2); Eosinophils Absolute Auto 100 /uL (0-450); Eosinophils Percent Auto 2.1 % (2-4); Hematocrit 37.3 % (41-53); Hemoglobin 12.6 g/dL (13.5-17.5); Lymphocytes Absolute Auto 2700 /uL (1100-4500); Lymphocytes Percent Auto 42.3 % (25-40); Mean Corpuscular HGB Conc 33.9 % (30-36); Mean Corpuscular Hemoglobin 30.3 PG (26-34); Mean Corpuscular Volume 89.6 fL (80-100); Monocytes Absolute Auto 600 /uL (0-900); Neutrophils Absolute Auto 2800 /uL (1500-7000); Neutrophils Percent Auto 45.1 % (50-75); Platelet Count 159 X10^3/uL (150-400); Red Blood Cell Count 4.16 X10^6/uL (4.5-5.9); Red Cell Distribution Width 14.6 % (11.6-14.8); White Blood Cell Count 6.3 X10^3/uL (4.5-11.0)
[2024-05-17 19:50] LABS: BUN Creatinine Ratio 21.2 (6-22); Blood Urea Nitrogen 22 mg/dL (9-20); Calcium 9.6 mg/dL (8.4-10.2); Carbon Dioxide 24 mmol/L (22-32); Chloride 108 mmol/L (98-107); Estimated Glomerular Filt Rate > 60 mL/min (>60); Glucose 115 mg/dL (80-110); HEMOLYSIS < 15 (0-50); Potassium 4.5 mmol/L (3.4-5.1); Sodium 138 mmol/L (137-145)
[2024-05-17 20:33] LABS: Creatinine Urine Random 125.94 mg/dL
[2024-05-17 20:38] LABS: Microalbumin Urine Random 14.7 mg/dL (0-1.6)
[2024-05-17 21:05] LABS: Hemoglobin A1C% w Est Avg Glu 6.9 % (4.0-6.0)
== END ==
PROVIDERS: PCP Family Medicine; Visit Provider Family Medicine
DX: D64.9 Anemia, unspecified (principal); E78.2 Mixed hyperlipidemia; I10 Essential (primary) hypertension; E11.29 Type 2 diabetes mellitus with other diabetic kidney complication; R80.9 Proteinuria, unspecified
CPT/HCPCS: 80048; 82043; 82570; 83036; 85025

== ENCOUNTER → 2024-11-28 09:24 | Outpatient (CLI) | payer MEDICARE, OTHER, SELFPAY ==
[2024-11-28 18:36] LABS: Add Manual Diff / Slide Review NO; Basophils Absolute Auto 0 /uL (0-100); Basophils Percent Auto 0.5 % (0-2); Eosinophils Absolute Auto 200 /uL (0-450); Hematocrit 38.4 % (41-53); Hemoglobin 12.8 g/dL (13.5-17.5); Lymphocytes Absolute Auto 2100 /uL (1100-4500); Lymphocytes Percent Auto 38.3 % (25-40); Mean Corpuscular HGB Conc 33.2 % (30-36); Mean Corpuscular Hemoglobin 29.9 PG (26-34); Monocytes Absolute Auto 600 /uL (0-900); Monocytes Percent Auto 11.1 % (3-14); Neutrophils Absolute Auto 2600 /uL (1500-7000); Neutrophils Percent Auto 46.1 % (50-75); Platelet Count 192 X10^3/uL (150-400); Red Blood Cell Count 4.27 X10^6/uL (4.5-5.9); Red Cell Distribution Width 15.4 % (11.6-14.8); White Blood Cell Count 5.6 X10^3/uL (4.5-11.0)
[2024-11-28 18:53] LABS: BUN Creatinine Ratio 23.7 (6-22); Blood Urea Nitrogen 27 mg/dL (9-20); Calcium 9.4 mg/dL (8.4-10.2); Carbon Dioxide 26 mmol/L (22-32); Chloride 106 mmol/L (98-107); Cholesterol 135 mg/dL (140-199); Estimated Glomerular Filt Rate > 60 mL/min (>60); Glucose 164 mg/dL (80-110); HDL Cholesterol 42 mg/dL (40-60); HEMOLYSIS 24 (0-50); LDL Cholesterol Calculated 73 mg/dL (<100); Potassium 5.1 mmol/L (3.4-5.1); Sodium 139 mmol/L (137-145); Triglycerides 100 mg/dL (35-150)
[2024-11-28 19:37] LABS: Creatinine Urine Random 93.06 mg/dL
[2024-11-28 19:42] LABS: Hemoglobin A1C% w Est Avg Glu 7.2 % (4.0-6.0)
[2024-11-28 19:44] LABS: Microalbumin Urine Random 9.5 mg/dL (0-1.6)
== END ==
PROVIDERS: PCP Family Medicine; Visit Provider Family Medicine
DX: D64.9 Anemia, unspecified (principal); E78.2 Mixed hyperlipidemia; E87.1 Hypo-osmolality and hyponatremia; E11.29 Type 2 diabetes mellitus with other diabetic kidney complication; I10 Essential (primary) hypertension; R80.9 Proteinuria, unspecified
CPT/HCPCS: 80048; 80061; 82043; 82570; 83036; 85025

== ENCOUNTER → 2025-04-28 09:16 | Outpatient (CLI) | payer MEDICARE, OTHER, SELFPAY ==
[2025-04-28 18:52] LABS: Hemoglobin A1C% w Est Avg Glu 7.4 % (4.0-6.0)
[2025-04-28 19:08] LABS: Add Manual Diff / Slide Review NO; Hematocrit 37.3 % (41-53); Hemoglobin 12.6 g/dL (13.5-17.5); Lymphocytes Absolute Auto 2500 /uL (1100-4500); Mean Corpuscular HGB Conc 33.7 % (30-36); Mean Corpuscular Hemoglobin 30.0 PG (26-34); Mean Corpuscular Volume 88.8 fL (80-100); Platelet Count 177 X10^3/uL (150-400)
[2025-04-28 19:19] LABS: Blood Urea Nitrogen 21 mg/dL (9-20); Calcium 9.3 mg/dL (8.4-10.2); Carbon Dioxide 24 mmol/L (22-32); Chloride 104 mmol/L (98-107); Cholesterol 105 mg/dL (140-199); Estimated Glomerular Filt Rate > 60 mL/min (>60); Glucose 122 mg/dL (70-99); HDL Cholesterol 44 mg/dL (40-60); HEMOLYSIS < 15 (0-50); Potassium 4.6 mmol/L (3.4-5.1); Sodium 136 mmol/L (137-145); Triglycerides 118 mg/dL (35-150)
[2025-04-28 19:50] LABS: Microalbumi Creatinin Ratio Ur 65.0 ug/mg CR (<30)
== END ==
PROVIDERS: PCP Family Medicine; Visit Provider Family Medicine
DX: D64.9 Anemia, unspecified (principal); E78.2 Mixed hyperlipidemia; E87.1 Hypo-osmolality and hyponatremia; I10 Essential (primary) hypertension; E11.29 Type 2 diabetes mellitus with other diabetic kidney complication; R80.9 Proteinuria, unspecified
CPT/HCPCS: 80048; 80061; 82043; 82570; 83036; 85025